=== PATIENT | female | born 1990 | race African-American/Black ===

== ENCOUNTER 2017-01-06 21:28 | Emergency (ER) | payer OTHER ==
[~2017-01-06] VITALS: Ht 154.9 cm; Wt 68.0 kg
[~2017-01-06 21:28] MED LIST: ANTIVERT25 MG PO; AUGMENTIN 875875 MG PO; DIFLUCAN150 MG PO; FLAGYL500 MG PO; NAPROSYN500 MG PO; NOHOMEMEDICATIONS; NORCO 5-325 TA1 EACH PO; PHENERGAN 25 MG25 M1 PO; ZPAK PO
[2017-01-06] MEDS ORDERED: MOBIC7.5 MG PO (21:45)
[2017-01-06] MEDS ORDERED: KEFLEX500 MG PO (21:45)
[2017-01-06 22:49] VITALS: BP 118/76
== END 2017-01-06 22:45 | disposition home or self-care (01) ==
LOC: ER 21:28
DX: L03.032 Cellulitis of left toe (principal)

== ENCOUNTER 2017-05-30 17:36 | Emergency (ER) | payer OTHER ==
[~2017-05-30] VITALS: Ht 154.9 cm; Wt 70.3 kg
[~2017-05-30 17:36] MED LIST changes: +KEFLEX500 MG PO; +MOBIC7.5 MG PO
[2017-05-30 18:00] LABS: URINE BILIRUBIN NEGATIVE (Negative); URINE BLOOD NEGATIVE (Negative); URINE CLARITY CLEAR; URINE COLOR YELLOW; URINE GLUCOSE-RANDOM* NEGATIVE (Negative); URINE KETONES NEGATIVE (Negative); URINE LEUKOCYTES-REFLEX NEGATIVE (Negative); URINE NITRITE-REFLEX NEGATIVE (Negative); URINE PROTEIN (DIPSTICK) NEGATIVE (Negative); URINE SPECIFIC GRAVITY 1.025 (1.005-1.035); URINE UROBILINOGEN 0.2 E.U./dl (0.2-1.0)
[2017-05-30] MEDS ORDERED: MEDROLDOSEPACK PO (19:11)
== END 2017-05-30 19:24 | disposition home or self-care (01) ==
LOC: ER 17:36
PROVIDERS: Emergency Medicine
DX: N89.8 Other specified noninflammatory disorders of vagina (principal); M79.642 Pain in left hand; M79.641 Pain in right hand

== ENCOUNTER 2017-12-09 21:34 | Emergency (ER) | payer OTHER ==
[~2017-12-09] VITALS: Ht 154.9 cm; Wt 83.5 kg
[~2017-12-09 21:34] MED LIST changes: +MEDROLDOSEPACK PO
[2017-12-09 22:55] VITALS: BP 118/73
== END 2017-12-09 22:56 | disposition home or self-care (01) ==
LOC: ER 21:34
DX: Z53.21 Procedure and treatment not carried out due to patient leaving prior to being seen by health care provider (principal)

== ENCOUNTER 2018-03-30 18:23 | Emergency (ER) | payer OTHER ==
[~2018-03-30] VITALS: Ht 154.9 cm; Wt 81.7 kg
[2018-03-30 18:57] VITALS: BP 125/74
== END 2018-03-30 18:57 | disposition home or self-care (01) ==
LOC: ER 18:23
DX: L23.6 Allergic contact dermatitis due to food in contact with the skin (principal)

== ENCOUNTER 2018-04-27 09:52 | Emergency (ER) | payer OTHER ==
[~2018-04-27] VITALS: Ht 154.9 cm; Wt 81.7 kg
[2018-04-27 09:52] VITALS: BP 115/75
[2018-04-27 10:11] LABS: URINE BILIRUBIN NEGATIVE (Negative); URINE BLOOD TRACE (Negative); URINE CLARITY CLOUDY; URINE COLOR YELLOW; URINE GLUCOSE-RANDOM* NEGATIVE (Negative); URINE KETONES NEGATIVE (Negative); URINE PROTEIN (DIPSTICK) NEGATIVE (Negative); URINE SPECIFIC GRAVITY 1.025 (1.005-1.035)
[2018-04-27 10:12] LABS: URINE LEUKOCYTES-REFLEX 2+ (Negative); URINE NITRITE-REFLEX NEGATIVE (Negative)
[2018-04-27 10:25] LABS: SQUAMOUS 4-10 Moderate /LPF (0-3); URINE WBC-REFLEX >25 Many /HPF (0-5)
[2018-04-27 10:26] LABS: CASTS None Seen /LPF (None Seen); CRYSTALS None Seen /LPF (None Seen); MUCUS 0-3 Light strn/LPF (None Seen); URINE RBC None Seen /HPF (0-2)
[2018-04-27] MEDS ORDERED: KEFLEX500 M1 PO (10:31)
[2018-04-27] MEDS ORDERED: FLAGYL500 M1 PO (10:32)
== END 2018-04-27 10:37 | disposition home or self-care (01) ==
LOC: ER 09:52
PROVIDERS: Physician Assistant
DX: N39.0 Urinary tract infection, site not specified (principal); N76.0 Acute vaginitis; B96.89 Other specified bacterial agents as the cause of diseases classified elsewhere

== ENCOUNTER 2018-05-03 14:43 | Emergency (ER) | payer OTHER ==
[~2018-05-03] VITALS: Ht 154.9 cm; Wt 81.7 kg
[~2018-05-03 14:43] MED LIST changes: +FLAGYL500 M1 PO; +KEFLEX500 M1 PO
[2018-05-03 15:11] LABS: URINE CLARITY CLEAR; URINE COLOR YELLOW; URINE SPECIFIC GRAVITY > 1.030 (1.005-1.035)
[2018-05-03 15:12] LABS: ICTOTEST (BILI CONFIRMATORY) Negative (Negative); URINE BILIRUBIN NEGATIVE (Negative); URINE BLOOD TRACE (Negative); URINE GLUCOSE-RANDOM* NEGATIVE (Negative); URINE KETONES NEGATIVE (Negative); URINE LEUKOCYTES-REFLEX NEGATIVE (Negative); URINE NITRITE-REFLEX NEGATIVE (Negative); URINE PROTEIN (DIPSTICK) TRACE (Negative)
[2018-05-03 15:20] LABS: ABSOLUTE NEUTROPHILS 2.1 thou/uL (1.4-8.2); BASOPHILS 0.6 % (0.0-2.0); HEMATOCRIT 36.3 % (37.0-47.0); HEMOGLOBIN 12.1 gm/dL (12.0-15.0); LYMPHOCYTES 30.7 % (24.0-44.0); MCH 28.8 pg (26.0-34.0); MCHC 33.4 g/dL (28.0-37.0); MCV 86.2 fL (80.0-100.0); MONOCYTES 10.9 % (1.0-8.0); PLATELET COUNT 454 thou/uL (150-400); POLYS 56.8 % (36.0-66.0); RBC 4.21 mil/uL (4.20-5.00); RDW 14.1 % (10.5-14.5); WBC 3.7 thou/uL (4.0-11.0)
[2018-05-03 15:26] LABS: POTASSIUM 3.8 mmol/L (3.5-5.1)
[2018-05-03 15:32] LABS: ALBUMIN 3.8 g/dL (3.4-5.0); TOTAL BILIRUBIN 1.8 mg/dL (<0.1-1.0); TOTAL PROTEIN 8.2 g/dL (6.4-8.2)
[2018-05-03] MEDS ORDERED: PEPCID20 MG PO (16:15)
[2018-05-03] MEDS ORDERED: PHENERGAN 25 MG25 M1 PO (16:15)
[2018-05-03 17:17] VITALS: BP 110/67
== END 2018-05-03 17:18 | disposition home or self-care (01) ==
LOC: ER 14:43
PROVIDERS: Physician Assistant
DX: R11.2 Nausea with vomiting, unspecified (principal); R19.7 Diarrhea, unspecified